=== PATIENT | female | born 1955 | race African-American/Black ===

== ENCOUNTER 2017-03-16 05:57 | Emergency (ER) | payer MEDICAID ==
[~2017-03-16] VITALS: Ht 157.5 cm; Wt 81.0 kg
[2017-03-16 12:52] VITALS: BP 158/91
== END 2017-03-16 12:53 | disposition home or self-care (01) ==
LOC: ER 05:57
DX: S16.1XXA Strain of muscle, fascia and tendon at neck level, initial encounter (principal); S40.019A Contusion of unspecified shoulder, initial encounter; I10 Essential (primary) hypertension; V49.88XA Car occupant (driver) (passenger) injured in other specified transport accidents, initial encounter; Y93.89 Activity, other specified; Y92.89 Other specified places as the place of occurrence of the external cause; Y99.8 Other external cause status
CPT/HCPCS: 72125; 73030; 99284; Z7610